=== PATIENT | female | born 1955 | race Caucasian/White ===

== ENCOUNTER → 2017-12-02 | Outpatient (CLI) | payer OTHER ==
[~2017-12-02] MED LIST: ASPI81CH; CELE100; CLARITIN10 MG; CYCL10; METR59TL; Omeprazole20 M1; RALO60; VALSARTAN-HCTZ1 EAC4
== END ==
LOC: LAB SHORT 15:46 → LAB EV 15:46
DX: R30.0 Dysuria (principal)
CPT/HCPCS: 87086

== ENCOUNTER 2019-02-19 11:49 | Day surgery (SDC) | payer OTHER ==
[~2019-02-19] VITALS: Ht 162.6 cm; Wt 139.2 kg
[~2019-02-19 11:49] MED LIST changes: +Aspir 8181 MG PO; +BENADRYL25 MG PO; +CELE100 PO; +Daily Multiple1 EACH PO; +FISH OIL + D31 EACH PO; +FLUT1DIS5 INH; +GLUCOSAMINE MS PO; +LOSARTAN-HCTZ1 EAC2 PO; +Loratadine10 MG PO; +OMEP20ER PO; +RALO60 PO; +VITAMIN D31000 UNIT PO
--- NOTE | 2019-02-19 12:17 | NUR ---
02/19/19 1217 Ilene Mari 1ST ATTEMPT BY RXS IN RIGHT HAND INFILTRATED 2ND ATTEMPT BY KDG IN RIGHT HAND SUCCESSFUL
== END 2019-02-19 13:45 | disposition home or self-care (01) ==
LOC: ORSCSDS 11:49
PROVIDERS: Internal Medicine Gastroenterology
PROC: 0D757ZZ Dilation of Esophagus, Via Natural or Artificial Opening (ICD-10-PCS; principal; 2019-02-19 13:00)
PROC: 0DB58ZX Excision of Esophagus, Via Natural or Artificial Opening Endoscopic, Diagnostic (ICD-10-PCS; principal; 2019-02-19 13:00)
DX: K22.70 Barrett's esophagus without dysplasia (principal); R13.14 Dysphagia, pharyngoesophageal phase; Z86.010 Personal history of colon polyps; K22.2 Esophageal obstruction; I10 Essential (primary) hypertension; Z68.43 Body mass index [BMI] 50.0-59.9, adult; E66.9 Obesity, unspecified; Z79.82 Long term (current) use of aspirin; Z79.899 Other long term (current) drug therapy
CPT/HCPCS: 88305; J7120

== ENCOUNTER 2020-04-21 06:13 | Day surgery (SDC) | payer MEDICARE, BC ==
[~2020-04-21] VITALS: Ht 162.6 cm; Wt 139.6 kg
[~2020-04-21 06:13] MED LIST changes: +AMLO5 PO
[2020-04-21] MEDS ORDERED: BACL10 (06:47)
[2020-04-21] MEDS ORDERED: Norco 5-325 Ta1 EACH (06:47)
--- NOTE | 2020-04-21 07:20 | NUR ---
04/21/20 0720 Lia Azul PT NOTIFIED THAT ANESTHESIOLOGIST IN STILL IN PROCEDURE.
== END 2020-04-21 10:42 | disposition home or self-care (01) ==
LOC: ORSCSDS 06:13
PROVIDERS: Podiatrist Foot & Ankle Surgery
PROC: 0SGJ04Z Fusion of Left Tarsal Joint with Internal Fixation Device, Open Approach (ICD-10-PCS; principal; 2020-04-21 07:30)
DX: M19.072 Primary osteoarthritis, left ankle and foot (principal); M21.41 Flat foot [pes planus] (acquired), right foot; I10 Essential (primary) hypertension; J45.909 Unspecified asthma, uncomplicated; E78.5 Hyperlipidemia, unspecified; E66.01 Morbid (severe) obesity due to excess calories; Z68.43 Body mass index [BMI] 50.0-59.9, adult; Z79.82 Long term (current) use of aspirin; Z79.899 Other long term (current) drug therapy
CPT/HCPCS: A9270; C1713; C1769; J0171; J0690; J1100; J1885; J2250; J2405; J2704; J3010; J7120

== ENCOUNTER 2021-12-28 07:52 | Day surgery (SDC) | payer MEDICARE, BC ==
[~2021-12-28] VITALS: Ht 162.6 cm; Wt 136.3 kg
[~2021-12-28 07:52] MED LIST changes: +ACET500; +ALBU90OI; +AZELASTINE137 MCG/01; +BACL10; +CYCL10 PO; +DILTIAZEM 24HR240 M3 PO; +DOC250; +Norco 5-325 Ta1 EACH; +Toviaz8 MG PO; +ZYRTEC10 M2 PO
== END 2021-12-28 10:13 | disposition home or self-care (01) ==
LOC: ORSCSDS 07:52 → ORSCMMR 09:00 → ORD 09:00 → ORSCSDS 10:13
PROVIDERS: Internal Medicine Gastroenterology
PROC: 0DB78ZX Excision of Stomach, Pylorus, Via Natural or Artificial Opening Endoscopic, Diagnostic (ICD-10-PCS; principal; 2021-12-28 09:00)
PROC: 0DBK8ZX Excision of Ascending Colon, Via Natural or Artificial Opening Endoscopic, Diagnostic (ICD-10-PCS; principal; 2021-12-28 09:00)
PROC: 0DBM8ZX Excision of Descending Colon, Via Natural or Artificial Opening Endoscopic, Diagnostic (ICD-10-PCS; principal; 2021-12-28 09:00)
PROC: 0D757ZZ Dilation of Esophagus, Via Natural or Artificial Opening (ICD-10-PCS; principal; 2021-12-28 09:00)
PROC: 0DBN8ZX Excision of Sigmoid Colon, Via Natural or Artificial Opening Endoscopic, Diagnostic (ICD-10-PCS; principal; 2021-12-28 09:00)
PROC: 0DB58ZX Excision of Esophagus, Via Natural or Artificial Opening Endoscopic, Diagnostic (ICD-10-PCS; principal; 2021-12-28 09:00)
DX: R13.14 Dysphagia, pharyngoesophageal phase (principal); K22.2 Esophageal obstruction; K22.70 Barrett's esophagus without dysplasia; K63.89 Other specified diseases of intestine; Z12.11 Encounter for screening for malignant neoplasm of colon; Z86.010 Personal history of colon polyps; D12.2 Benign neoplasm of ascending colon; D12.4 Benign neoplasm of descending colon; D12.5 Benign neoplasm of sigmoid colon; K31.7 Polyp of stomach and duodenum; K57.30 Diverticulosis of large intestine without perforation or abscess without bleeding; E66.01 Morbid (severe) obesity due to excess calories; Z68.43 Body mass index [BMI] 50.0-59.9, adult; I10 Essential (primary) hypertension; J45.909 Unspecified asthma, uncomplicated; K21.9 Gastro-esophageal reflux disease without esophagitis; Z85.3 Personal history of malignant neoplasm of breast; Z79.899 Other long term (current) drug therapy
CPT/HCPCS: 88305; J2250; J2704; J7120

== ENCOUNTER 2022-03-18 11:05 | Day surgery (SDC) | payer MEDICARE, BC ==
[~2022-03-18] VITALS: Ht 165.1 cm; Wt 135.1 kg
== END 2022-03-18 13:10 | disposition home or self-care (01) ==
LOC: ORSCSDS 11:05
PROVIDERS: Student in an Organized Health Care Education/Training Program
PROC: 0DB48ZX Excision of Esophagogastric Junction, Via Natural or Artificial Opening Endoscopic, Diagnostic (ICD-10-PCS; principal; 2022-03-18 12:15)
PROC: 0D758ZZ Dilation of Esophagus, Via Natural or Artificial Opening Endoscopic (ICD-10-PCS; principal; 2022-03-18 12:15)
DX: K21.9 Gastro-esophageal reflux disease without esophagitis (principal); R13.10 Dysphagia, unspecified; K22.2 Esophageal obstruction; K44.9 Diaphragmatic hernia without obstruction or gangrene; K31.7 Polyp of stomach and duodenum; I10 Essential (primary) hypertension; Z79.899 Other long term (current) drug therapy; E66.01 Morbid (severe) obesity due to excess calories; Z68.42 Body mass index [BMI] 45.0-49.9, adult
CPT/HCPCS: 88305; C1726; J2704; J7120

== ENCOUNTER 2022-06-07 06:16 | Day surgery (SDC) | payer MEDICARE, BC ==
[~2022-06-07] VITALS: Ht 165.1 cm; Wt 133.3 kg
[2022-06-07] MEDS ORDERED: CELE100 (07:23)
--- NOTE | 2022-06-07 08:10 | NUR ---
06/07/22 0810 Nel Saha POPITEAL BLOCK TO RIGHT SIDE. SITE CHECK COMPLETE. VSS. PT TOLERATED WELL.
--- NOTE | 2022-06-07 10:46 | NUR ---
06/07/22 1046 EM JONES PT DRESSING IS ON RIGHT LOWER LEG: SPINT/ GUIDO WRAP IT IS CLEAN AND INTACT
== END 2022-06-07 11:10 | disposition home or self-care (01) ==
LOC: ORSCSDS 06:16
PROVIDERS: Podiatrist Foot & Ankle Surgery
PROC: 0SGH04Z Fusion of Right Tarsal Joint with Internal Fixation Device, Open Approach (ICD-10-PCS; principal; 2022-06-07 07:30)
PROC: 0LSN0ZZ Reposition Right Lower Leg Tendon, Open Approach (ICD-10-PCS; principal; 2022-06-07 07:30)
DX: M21.41 Flat foot [pes planus] (acquired), right foot (principal); M19.071 Primary osteoarthritis, right ankle and foot; R60.0 Localized edema; M79.671 Pain in right foot; I10 Essential (primary) hypertension; E78.5 Hyperlipidemia, unspecified; J45.909 Unspecified asthma, uncomplicated; E66.01 Morbid (severe) obesity due to excess calories; Z68.43 Body mass index [BMI] 50.0-59.9, adult; Z79.51 Long term (current) use of inhaled steroids; Z79.899 Other long term (current) drug therapy
CPT/HCPCS: A9270; C1713; C1734; C1769; J0171; J0690; J1100; J2250; J2370; J2405; J2704; J2795; J3010; J7120

== ENCOUNTER → 2022-09-20 | Outpatient (CLI) | payer MEDICARE, BC ==
[2022-09-20 13:15] LABS: BASOPHILS ABSOLUTE AUTO 0.05 K/mm3 (0.00-0.23); BASOPHILS PERCENT AUTO 1 % (0-2); EOSINOPHILS ABSOLUTE AUTO 0.25 K/mm3 (0.00-0.68); EOSINOPHILS PERCENT AUTO 4 % (0-6); Hematocrit 39.6 % (33.0-51.0); Hemoglobin 12.8 g/dL (11.5-16.0); IMMATURE GRAN ABSOLUTE AUTO 0.01 K/mm3 (0.00-0.10); IMMATURE GRAN PERCENT AUTO 0 % (0-1); LYMPHOCYTES ABSOLUTE AUTO 1.65 K/mm3 (0.84-5.20); LYMPHOCYTES PERCENT AUTO 27 % (21-46); MONOCYTES ABSOLUTE AUTO 0.53 K/mm3 (0.16-1.47); MONOCYTES PERCENT AUTO 9 % (4-13); Mean Corpuscular HGB 26.6 pg (26.0-34.0); Mean Corpuscular HGB Conc 32.3 g/dL (31.5-36.5); Mean Corpuscular Volume 82 fL (80-100); Mean Platelet Volume 9.2 fL (9.1-12.4); NEUTROPHILS ABSOLUTE AUTO 3.61 K/mm3 (1.96-9.15); NEUTROPHILS PERCENT AUTO 59 % (41-73); Platelet Count 403 K/mm3 (150-400); RDW Coefficient Variation 14.2 % (11.7-14.2); RDW Standard Deviation 42.5 fL (35.1-46.3); Red Blood Cell Count 4.81 M/mm3 (3.80-5.20)
[2022-09-20 14:06] LABS: Alanine Aminotransfer (ALT/SGP 26 U/L (12-78); Albumin, Blood 3.6 g/dL (3.4-5.0); Albumin/Globulin Ratio 1.1 (0.8-1.8); Alk Phos 122 U/L (50-136); Anion Gap 6 mmol/L (6-16); Aspartate Aminotrans (AST/SGOT 18 U/L (12-37); Bilirubin, Total 0.5 mg/dL (0.1-1.0); Blood Urea Nitrogen 15 mg/dL (8-24); Bun/Creatinine Ratio 29.1 (12.0-20.0); CHOL/HDL RATIO 3.2; CO2, Blood 27 mmol/L (21-32); Calcium, Blood 8.8 mg/dL (8.5-10.1); Chloride, Blood 106 mmol/L (98-108); Cholesterol 187 mg/dL (50-200); Creatinine, Blood 0.52 mg/dL (0.40-1.00); Globulin, Blood 3.4 g/dL (2.2-4.0); Glomerular Filtration Rate 101 (60-); Glucose, Blood 97 mg/dL (70-99); HDL Cholesterol 58 mg/dL (>39); LDL/HDL RATIO 1.8; Low Density Lipoprotein Chol 105 mg/dL (0-110); Potassium, Blood 3.6 mmol/L (3.5-5.5); Sodium, Blood 139 mmol/L (136-145); Triglycerides 118 mg/dL (30-160); Very Low Density Lipoprot Chol 23 mg/dL (6-32)
== END | disposition home or self-care (01) ==
LOC: LAB SHORT 11:52 → LAB 11:52
PROVIDERS: Family Medicine
DX: E78.49 Other hyperlipidemia (principal); I10 Essential (primary) hypertension
CPT/HCPCS: 80053; 80061; 85025

== ENCOUNTER 2024-06-03 19:43 | Inpatient (IN) | payer MEDICARE, BC ==
[~2024-06-03] VITALS: Ht 162.6 cm; Wt 140.7 kg
[~2024-06-03 19:43] MED LIST changes: -AMOCLA875 PO; -AZELASTINE137 MCG/06; -BREO ELLIPTA 11 EAC1 INH; -FLUT.05NI; -FURO40 PO; -IPRAT-ALBUT 0.5-3 ML INH; -LACT PO; -LOSARTAN POTAS100 M1 PO; -LOSARTAN-HCTZ1 EAC5 PO; -NEOPOLDEXS BOTHEYES; -OSEL75CA PO; -POTA10T PO; -PRED20 PO; -ROBITUSSIN DM PO; -SODCHL1 PO; -SPIRIVA RESPIMAT4 G3 INH
[2024-06-03] MEDS ORDERED: NS 1,000 ML IV SCH (22:10)
[2024-06-03] MEDS ORDERED: Albuterol 2.5 MG/3 ML VIAL INH SCH (22:15)
[2024-06-03 22:26] LABS: BASOPHILS ABSOLUTE AUTO 0.02 K/mm3 (0.00-0.23); BASOPHILS PERCENT AUTO 0 % (0-2); EOSINOPHILS ABSOLUTE AUTO 0.01 K/mm3 (0.00-0.68); EOSINOPHILS PERCENT AUTO 0 % (0-6); Hematocrit 39.9 % (33.0-51.0); Hemoglobin 13.9 g/dL (11.5-16.0); IMMATURE GRAN ABSOLUTE AUTO 0.08 K/mm3 (0.00-0.10); IMMATURE GRAN PERCENT AUTO 1 % (0-1); LYMPHOCYTES ABSOLUTE AUTO 1.05 K/mm3 (0.84-5.20); LYMPHOCYTES PERCENT AUTO 12 % (21-46); MONOCYTES PERCENT AUTO 6 % (4-13); Mean Corpuscular HGB 27.1 pg (26.0-34.0); Mean Corpuscular HGB Conc 34.8 g/dL (31.5-36.5); Mean Corpuscular Volume 78 fL (80-100); Mean Platelet Volume 8.4 fL (9.1-12.4); NEUTROPHILS ABSOLUTE AUTO 7.43 K/mm3 (1.96-9.15); NEUTROPHILS PERCENT AUTO 82 % (41-73); Platelet Count 392 K/mm3 (150-400); RDW Coefficient Variation 12.9 % (11.7-14.2); RDW Standard Deviation 36.7 fL (35.1-46.3); Red Blood Cell Count 5.12 M/mm3 (3.80-5.20); White Blood Cell Count 9.09 K/mm3 (4.00-11.30)
[2024-06-03] MEDS ORDERED: NS 1,000 ML IV ONE (22:45)
[2024-06-03] MEDS ORDERED: FLU VACC TS2024-25(6MOS UP)/PF 45 MCG/0.5 ML SYRINGE IM ONE (22:45)
[2024-06-03] MEDS ORDERED: Ondansetron HCl 2 MG / ML 2ML Vial IV PRN (22:45)
[2024-06-03] MEDS ORDERED: Potassium Chloride 40 MEQ in NS 250 ML IV ONE (22:50)
[2024-06-03] MEDS ORDERED: Enoxaparin 40 MG/0.4 ML SYR SC SCH (23:00)
[2024-06-03 23:09] LABS: Albumin/Globulin Ratio 0.9 (0.8-1.8); Bilirubin, Total 0.4 mg/dL (0.1-1.0); Bun/Creatinine Ratio 34.5 (12.0-20.0); Calcium, Blood 8.4 mg/dL (8.5-10.1); Creatinine, Blood 0.38 mg/dL (0.40-1.00); Globulin, Blood 3.5 g/dL (2.2-4.0); Potassium, Blood 3.1 mmol/L (3.5-5.5); Total Protein, Blood 6.5 g/dL (6.4-8.2)
[2024-06-03] MEDS ORDERED: FLUT.05NI (23:10)
[2024-06-03] MEDS ORDERED: AZELASTINE137 MCG/06 (23:11)
[2024-06-03] MEDS ORDERED: CYCL10 PO (23:12)
[2024-06-03] MEDS ORDERED: LOSARTAN-HCTZ1 EAC5 PO (23:15)
[2024-06-03] MEDS ORDERED: NEOPOLDEXS BOTHEYES (23:15)
[2024-06-03] MEDS ORDERED: BREO ELLIPTA 11 EAC1 INH (23:16)
[2024-06-03] MEDS ORDERED: SPIRIVA RESPIMAT4 G3 INH (23:17)
[2024-06-03] MEDS ORDERED: PRED20 PO (23:18)
[2024-06-03] MEDS ORDERED: IPRAT-ALBUT 0.5-3 ML INH (23:18)
[2024-06-03 23:43] LABS: Influenza B, PCR NEGATIVE (NEGATIVE); Resp Syncytial Virus, PCR NEGATIVE (NEGATIVE); SARS-Cov-2 (COVID-19) PCR, MMC NEGATIVE (NEGATIVE)
[2024-06-03 23:47] LABS: Influenza A, PCR POSITIVE (NEGATIVE)
[2024-06-04] MEDS ORDERED: Ipratropium/Albuterol SulF 2.5-0.5MG/3 ML Amp INH PRN (00:05)
[2024-06-04] MEDS ORDERED: Guaifenesin/Dextromethorphan Syrup 5 ML UDC PO PRN (00:05)
[2024-06-04 00:28] VITALS: BP 193/114
[2024-06-04] MEDS ORDERED: Oseltamivir Phosphate 75 MG Cap PO SCH (01:00)
[2024-06-04] MEDS ORDERED: MethylPREDNISolone Sod Succ 125 MG Vial IV SCH ×2 (01:00→08:00)
[2024-06-04] MEDS ORDERED: HydrALAZINE HCl 20 MG / ML 1ML Vial IV PRN (01:50)
[2024-06-04] MEDS ORDERED: Azithromycin 500 MG in NS 250 ML IV SCH (04:48)
[2024-06-04] MEDS ORDERED: CefTRIAXone Sodium 1,000 MG in NS 100 ML IV SCH (05:00)
[2024-06-04 05:56] LABS: BASOPHILS ABSOLUTE AUTO 0.01 K/mm3 (0.00-0.23); BASOPHILS PERCENT AUTO 0 % (0-2); EOSINOPHILS PERCENT AUTO 0 % (0-6); Hemoglobin 13.7 g/dL (11.5-16.0); IMMATURE GRAN ABSOLUTE AUTO 0.07 K/mm3 (0.00-0.10); IMMATURE GRAN PERCENT AUTO 1 % (0-1); LYMPHOCYTES ABSOLUTE AUTO 0.74 K/mm3 (0.84-5.20); LYMPHOCYTES PERCENT AUTO 8 % (21-46); MONOCYTES ABSOLUTE AUTO 0.18 K/mm3 (0.16-1.47); MONOCYTES PERCENT AUTO 2 % (4-13); Mean Corpuscular HGB 26.9 pg (26.0-34.0); Mean Corpuscular HGB Conc 34.3 g/dL (31.5-36.5); Mean Corpuscular Volume 79 fL (80-100); Mean Platelet Volume 9.1 fL (9.1-12.4); NEUTROPHILS ABSOLUTE AUTO 8.23 K/mm3 (1.96-9.15); NEUTROPHILS PERCENT AUTO 89 % (41-73); Platelet Count 388 K/mm3 (150-400); RDW Coefficient Variation 13.1 % (11.7-14.2); RDW Standard Deviation 37.3 fL (35.1-46.3); Red Blood Cell Count 5.09 M/mm3 (3.80-5.20); White Blood Cell Count 9.23 K/mm3 (4.00-11.30)
[2024-06-04] MEDS ORDERED: Cyclobenzaprine HCl 10 MG Tab PO PRN (06:20)
[2024-06-04] MEDS ORDERED: Tiotropium Bromide 2.5 MCG/ACT MIST INHAL (10 ACT/4 GM) INH SCH (06:25)
[2024-06-04] MEDS ORDERED: Acetaminophen 325 MG TABLET PO PRN (06:25)
[2024-06-04 06:48] LABS: Albumin, Blood 2.9 g/dL (3.4-5.0); Albumin/Globulin Ratio 0.9 (0.8-1.8); Bilirubin, Total 0.4 mg/dL (0.1-1.0); Bun/Creatinine Ratio 24.9 (12.0-20.0); Calcium, Blood 8.2 mg/dL (8.5-10.1); Creatinine, Blood 0.44 mg/dL (0.40-1.00); Globulin, Blood 3.4 g/dL (2.2-4.0); Potassium, Blood 3.8 mmol/L (3.5-5.5); Total Protein, Blood 6.3 g/dL (6.4-8.2)
[2024-06-04] MEDS ORDERED: Trospium Chloride 20 MG Tab PO SCH (07:30)
[2024-06-04] MEDS ORDERED: Omeprazole 20 MG CapCR PO SCH (07:30)
[2024-06-04 08:02] VITALS: BP 154/84
[2024-06-04] MEDS ORDERED: Docusate Sodium 250 MG Cap PO SCH (09:00)
[2024-06-04] MEDS ORDERED: Losartan Potassium 50 MG Tab PO SCH (09:00)
[2024-06-04] MEDS ORDERED: Aspirin 81 MG TabEC PO SCH (09:00)
[2024-06-04] MEDS ORDERED: Azelastine 0.1% Nasal Spray SCH (09:00)
[2024-06-04] MEDS ORDERED: HydroCHLOROthiazide 25 mg Tab PO SCH (09:00)
[2024-06-04] MEDS ORDERED: Diltiazem HCl 180 MG Cap.CD PO SCH (09:00)
[2024-06-04] MEDS ORDERED: Fluticasone 0.05% Nasal Spray SCH (09:00)
[2024-06-04 09:51] LABS: Osmolality, Serum 244 mos/KG (275-300)
[2024-06-04 10:06] LABS: Uric Acid, Blood 1.6 mg/dL (2.6-6.0)
[2024-06-04 10:08] LABS: Thyroid Stimulating Hormone 0.585 uIU/mL (0.360-4.800)
[2024-06-04 10:13] LABS: Albumin, Blood 2.9 g/dL (3.4-5.0); Anion Gap 17 mmol/L (3-11); Blood Urea Nitrogen 12 mg/dL (8-24); Bun/Creatinine Ratio 35.6 (12.0-20.0); CO2, Blood 22 mmol/L (21-32); Chloride, Blood 83 mmol/L (98-108); Creatinine, Blood 0.34 mg/dL (0.40-1.00); Glomerular Filtration Rate 111 (60-); Glucose, Blood 116 mg/dL (70-99); HDL Cholesterol 109 mg/dL (>39); Phosphorus, Blood 2.9 mg/dL (2.5-4.9); Potassium, Blood 4.6 mmol/L (3.5-5.5); Sodium, Blood 117 mmol/L (136-145)
[2024-06-04] MEDS ORDERED: Bumetanide 0.25 MG/ML 10ML Vial IV ONE (11:05)
[2024-06-04 15:23] LABS: Bun/Creatinine Ratio 26.5 (12.0-20.0); Calcium, Blood 8.1 mg/dL (8.5-10.1); Creatinine, Blood 0.45 mg/dL (0.40-1.00); Potassium, Blood 3.1 mmol/L (3.5-5.5)
[2024-06-04] MEDS ORDERED: Potassium Chloride 10 Meq Tablet SA PO ONE ×2 (15:45→18:35)
[2024-06-04 15:52] VITALS: BP 177/93
[2024-06-04 16:30] VITALS: BP 162/80
[2024-06-04 17:51] VITALS: BP 165/76
--- NOTE | 2024-06-04 18:11 | NUR ---
SHIFT SUMMARY PT A&Ox4, CALLS AND COMMUNICATES NEEDS APPROPRIATELY. MONITORING FOR NEUROLOGIAL S/S OF HYPONATREMIA. BP ELEVATED - C/O MILD HEADACHE, MANAGING PER EMAR, SINUS 80's w/ PVCs, DENIES CP/PRESSURE. SpO2> 92% RA, REPORTS MILD SOB AND C/O OF WHEEZING, RT NOTIFIED. PT IND IN ROOM, CONTINENT OF URINE, STRICT I&Os. NO OTHER EVENTS, WILL REPORT TO ONCOMING RN.
[2024-06-04 18:22] LABS: Potassium, Blood 3.3 mmol/L (3.5-5.5)
[2024-06-04] MEDS ORDERED: Furosemide 10 MG/ML 4ML Vial IV ONE ×2 (18:35→21:50)
[2024-06-04] MEDS ORDERED: Sodium Chloride 1 GM TAB PO ONE ×3 (18:35→21:55)
[2024-06-04 20:24] VITALS: BP 149/77
[2024-06-04] MEDS ORDERED: Lactobacil 2-S.Thermo-Bifido 1 1 Cap PO SCH (21:00)
[2024-06-04 21:36] LABS: Bun/Creatinine Ratio 24.1 (12.0-20.0); Calcium, Blood 8.2 mg/dL (8.5-10.1); Creatinine, Blood 0.5 mg/dL (0.40-1.00); Potassium, Blood 3.1 mmol/L (3.5-5.5)
[2024-06-04] MEDS ORDERED: Potassium Chloride 20 MEQ TabCR PO ONE (21:50)
--- NOTE | 2024-06-04 21:54 | NUR ---
SPOKE WITH DR. GANT ABOUT SODIUM OF 118 ( CIRITICAL VALUE). HE GAVE ORDER FOR 40MEQ K+ PO, 40MG LASIX IV AND 2G SALT TAB NOW. MORNING CBC AND CMP CHANGED TO STAT.
[2024-06-05 05:28] LABS: BASOPHILS ABSOLUTE AUTO 0.01 K/mm3 (0.00-0.23); BASOPHILS PERCENT AUTO 0 % (0-2); EOSINOPHILS ABSOLUTE AUTO 0.01 K/mm3 (0.00-0.68); EOSINOPHILS PERCENT AUTO 0 % (0-6); Hematocrit 42.5 % (33.0-51.0); Hemoglobin 14.4 g/dL (11.5-16.0); IMMATURE GRAN ABSOLUTE AUTO 0.09 K/mm3 (0.00-0.10); IMMATURE GRAN PERCENT AUTO 1 % (0-1); LYMPHOCYTES PERCENT AUTO 8 % (21-46); MONOCYTES ABSOLUTE AUTO 0.41 K/mm3 (0.16-1.47); MONOCYTES PERCENT AUTO 5 % (4-13); Mean Corpuscular HGB 26.9 pg (26.0-34.0); Mean Corpuscular HGB Conc 33.9 g/dL (31.5-36.5); Mean Corpuscular Volume 79 fL (80-100); Mean Platelet Volume 8.7 fL (9.1-12.4); NEUTROPHILS ABSOLUTE AUTO 7.71 K/mm3 (1.96-9.15); NEUTROPHILS PERCENT AUTO 86 % (41-73); Platelet Count 443 K/mm3 (150-400); RDW Coefficient Variation 13.3 % (11.7-14.2); RDW Standard Deviation 37.7 fL (35.1-46.3); Red Blood Cell Count 5.36 M/mm3 (3.80-5.20); White Blood Cell Count 8.93 K/mm3 (4.00-11.30)
[2024-06-05 05:48] VITALS: BP 166/71
[2024-06-05 05:56] LABS: Albumin, Blood 3.1 g/dL (3.4-5.0); Anion Gap 12 mmol/L (3-11); Blood Urea Nitrogen 12 mg/dL (8-24); Bun/Creatinine Ratio 24.2 (12.0-20.0); CO2, Blood 30 mmol/L (21-32); Calcium, Blood 8.3 mg/dL (8.5-10.1); Chloride, Blood 84 mmol/L (98-108); Glomerular Filtration Rate 101 (60-); Glucose, Blood 138 mg/dL (70-99); Magnesium, Blood 2.2 mg/dL (1.6-2.4); Phosphorus, Blood 2.7 mg/dL (2.5-4.9); Potassium, Blood 3.7 mmol/L (3.5-5.5); Sodium, Blood 122 mmol/L (136-145)
[2024-06-05 07:06] VITALS: BP 156/74
[2024-06-05] MEDS ORDERED: Potassium Chloride 10 Meq Tablet SA PO SCH (08:00)
[2024-06-05] MEDS ORDERED: Sodium Chloride 1 GM TAB PO SCH (09:00)
[2024-06-05] MEDS ORDERED: Furosemide 10 MG/ML 4ML Vial IV SCH (09:00)
[2024-06-05 12:49] LABS: Albumin/Globulin Ratio 0.9 (0.8-1.8); Bilirubin, Total 0.2 mg/dL (0.1-1.0); Bun/Creatinine Ratio 33.8 (12.0-20.0); Creatinine, Blood 0.47 mg/dL (0.40-1.00); Globulin, Blood 3.5 g/dL (2.2-4.0); Potassium, Blood 3.5 mmol/L (3.5-5.5); Total Protein, Blood 6.5 g/dL (6.4-8.2)
[2024-06-05] MEDS ORDERED: Potassium Chloride 10 Meq Tablet SA PO ONE ×3 (13:05→22:25)
[2024-06-05 15:16] VITALS: BP 123/64
[2024-06-05 16:37] LABS: Potassium, Blood 3.4 mmol/L (3.5-5.5)
[2024-06-05] MEDS ORDERED: Sodium Chloride 1 GM TAB PO ONE (17:10)
[2024-06-05] MEDS ORDERED: Albuterol 2.5 MG/3 ML VIAL INH SCH ×2 (19:15→19:17)
[2024-06-05 19:48] VITALS: BP 146/72
[2024-06-05] MEDS ORDERED: MethylPREDNISolone Sod Succ 125 MG Vial IV SCH (21:00)
[2024-06-05 22:21] LABS: Potassium, Blood 3.6 mmol/L (3.5-5.5)
[2024-06-05] MEDS ORDERED: TraMADol HCl 50 MG Tab PO ONE (22:25)
[2024-06-06 05:02] LABS: BASOPHILS ABSOLUTE AUTO 0.02 K/mm3 (0.00-0.23); BASOPHILS PERCENT AUTO 0 % (0-2); EOSINOPHILS PERCENT AUTO 0 % (0-6); IMMATURE GRAN PERCENT AUTO 1 % (0-1); LYMPHOCYTES ABSOLUTE AUTO 0.45 K/mm3 (0.84-5.20); LYMPHOCYTES PERCENT AUTO 3 % (21-46); MONOCYTES ABSOLUTE AUTO 0.63 K/mm3 (0.16-1.47); MONOCYTES PERCENT AUTO 5 % (4-13); Mean Corpuscular HGB 27.2 pg (26.0-34.0); Mean Corpuscular HGB Conc 33.3 g/dL (31.5-36.5); Mean Corpuscular Volume 82 fL (80-100); Mean Platelet Volume 8.7 fL (9.1-12.4); NEUTROPHILS PERCENT AUTO 91 % (41-73); Platelet Count 443 K/mm3 (150-400); RDW Coefficient Variation 13.6 % (11.7-14.2); RDW Standard Deviation 40.6 fL (35.1-46.3); Red Blood Cell Count 5.15 M/mm3 (3.80-5.20)
[2024-06-06 05:17] LABS: Albumin, Blood 2.9 g/dL (3.4-5.0); Anion Gap 9 mmol/L (3-11); Blood Urea Nitrogen 20 mg/dL (8-24); Bun/Creatinine Ratio 32.8 (12.0-20.0); CO2, Blood 32 mmol/L (21-32); Chloride, Blood 94 mmol/L (98-108); Creatinine, Blood 0.61 mg/dL (0.40-1.00); Glomerular Filtration Rate 96 (60-); Glucose, Blood 144 mg/dL (70-99); Magnesium, Blood 2.4 mg/dL (1.6-2.4); Phosphorus, Blood 2.2 mg/dL (2.5-4.9); Potassium, Blood 3.9 mmol/L (3.5-5.5); Sodium, Blood 131 mmol/L (136-145)
[2024-06-06 05:19] VITALS: BP 158/78
--- NOTE | 2024-06-06 06:02 | NUR ---
SHIFT SUMMARY: Pt is admitted for hyponatremia and is a full code. Is alert and able to make needs known. ADLs have been SBA. spoke with md and was able to get a one time order for tramadol 50mg for a headache that APAP was not helping very well. She stated she shannan from a 5-6/10 down to a 2/10. Telly reports sinus in the high 90s with bundle branch, pvcs and pacs.
[2024-06-06] MEDS ORDERED: Sodium Phosphate 10 MM in NS 250 ML IV ONE (06:30)
[2024-06-06 07:35] VITALS: BP 175/77
[2024-06-06] MEDS ORDERED: Potassium Chloride 10 Meq Tablet SA PO SCH (09:00)
[2024-06-06] MEDS ORDERED: Furosemide 40 MG Tab PO SCH (09:00)
[2024-06-06] MEDS ORDERED: Furosemide 10 MG/ML 4ML Vial IV ONE (12:00)
[2024-06-06 12:51] LABS: Potassium, Blood 3.2 mmol/L (3.5-5.5)
[2024-06-06] MEDS ORDERED: Potassium Chloride 10 Meq Tablet SA PO ONE (13:25)
[2024-06-06 16:06] VITALS: BP 161/75
--- NOTE | 2024-06-06 19:19 | NUR ---
SHIFT SUMMARY PATIENT ABLE TO SHOWER THIS AM. SKIN IN GOOD CONDITION. POWERGLIDE TO LEFT ARM PATENT WITH RED BLOOD RETURN, CAPS CHANGED. ADDITIONAL ELECTROLYTE REPLACEMENT GIVEN PER MAR, TELEPHONE ORDER FROM DR GANT. A/O X4. NO C/O HEADACHE THIS SHIFT. CALL LIGHT IN REACH, CARES ONGOING
[2024-06-06 20:13] VITALS: BP 149/89
[2024-06-06] MEDS ORDERED: Oseltamivir Phosphate 6 MG/ML 1ML DOSE PO SCH (21:00)
[2024-06-07 05:05] LABS: Hematocrit 42.4 % (33.0-51.0); Hemoglobin 13.9 g/dL (11.5-16.0)
[2024-06-07 05:26] LABS: Albumin, Blood 2.9 g/dL (3.4-5.0); Anion Gap 10 mmol/L (3-11); Blood Urea Nitrogen 21 mg/dL (8-24); Bun/Creatinine Ratio 46.7 (12.0-20.0); CO2, Blood 31 mmol/L (21-32); Calcium, Blood 7.9 mg/dL (8.5-10.1); Chloride, Blood 100 mmol/L (98-108); Creatinine, Blood 0.45 mg/dL (0.40-1.00); Glomerular Filtration Rate 103 (60-); Glucose, Blood 146 mg/dL (70-99); Magnesium, Blood 2.6 mg/dL (1.6-2.4); Phosphorus, Blood 2.1 mg/dL (2.5-4.9); Potassium, Blood 3.6 mmol/L (3.5-5.5); Sodium, Blood 137 mmol/L (136-145)
[2024-06-07 05:49] VITALS: BP 170/86
[2024-06-07] MEDS ORDERED: SODIUM PHOSPHATE IV SCH (06:20)
[2024-06-07] MEDS ORDERED: Sodium Phosphate 10 MM in NS 250 ML IV STA (06:35)
[2024-06-07 07:44] VITALS: BP 180/93
[2024-06-07] MEDS ORDERED: Sodium Chloride 1 GM TAB PO SCH (09:00)
[2024-06-07] MEDS ORDERED: Oseltamivir Phosphate 75 MG Cap PO ONE (10:40)
[2024-06-07 11:03] VITALS: BP 170/74
[2024-06-07] MEDS ORDERED: FURO40 PO (13:55)
[2024-06-07] MEDS ORDERED: LOSARTAN POTAS100 M1 PO (13:55)
[2024-06-07] MEDS ORDERED: ROBITUSSIN DM PO (13:55)
[2024-06-07] MEDS ORDERED: POTA10T PO (13:56)
[2024-06-07] MEDS ORDERED: OSEL75CA PO (13:56)
[2024-06-07] MEDS ORDERED: LACT PO (13:57)
[2024-06-07] MEDS ORDERED: SODCHL1 PO (13:57)
[2024-06-07] MEDS ORDERED: AMOCLA875 PO (13:57)
--- NOTE | 2024-06-07 16:39 | NUR ---
DISCHARGE SUMMARY: PT DISCHARGED HOME. HERE TO PICK HER UP. PT EDUCATED ON DISCHARGE PLAN AND MEDICATIONS. PT AWARE SHE HAS APPOINTMENT WITH DR. GANT ON FRIDAY. PT ADVISED TO CALL DR. GANT OFFICE IF SYMPTOMS WORSEN OR COME BACK TO THE ER. PT V/U. PT ESCORTED TO POV VIA WHEELCHAIR. SPOUSE TOOK BELONGINGS.
[2024-06-07] MEDS ORDERED: Oseltamivir Phosphate 75 MG Cap PO SCH (21:00)
[2024-06-10 05:54] LABS: CORTISOL, FREE BY ED/LC-MS/MS 0.19 ug/dL
== END 2024-06-07 15:13 | disposition home or self-care (01) | DRG 193 ==
LOC: ER 19:43 → MEDS 22:15 → ERHOLD 22:15 → MEDS 23:59
PROVIDERS: Emergency Medicine; Family Medicine; Internal Medicine Nephrology; Student in an Organized Health Care Education/Training Program; ADMIT Internal Medicine
DX: J10.1 Influenza due to other identified influenza virus with other respiratory manifestations (principal); J96.01 Acute respiratory failure with hypoxia; E87.1 Hypo-osmolality and hyponatremia; Z68.43 Body mass index [BMI] 50.0-59.9, adult; K21.9 Gastro-esophageal reflux disease without esophagitis; I10 Essential (primary) hypertension; J45.909 Unspecified asthma, uncomplicated; D64.9 Anemia, unspecified; E87.6 Hypokalemia; E66.9 Obesity, unspecified; G56.03 Carpal tunnel syndrome, bilateral upper limbs; E83.39 Other disorders of phosphorus metabolism; R07.9 Chest pain, unspecified; E88.09 Other disorders of plasma-protein metabolism, not elsewhere classified; N28.9 Disorder of kidney and ureter, unspecified; Z79.899 Other long term (current) drug therapy; Z79.891 Long term (current) use of opiate analgesic; Z79.51 Long term (current) use of inhaled steroids; Z79.82 Long term (current) use of aspirin; Z79.52 Long term (current) use of systemic steroids; Z79.1 Long term (current) use of non-steroidal anti-inflammatories (NSAID); Z91.048 Other nonmedicinal substance allergy status; Z90.710 Acquired absence of both cervix and uterus; Z90.89 Acquired absence of other organs; Z98.890 Other specified postprocedural states; Z28.89 Immunization not carried out for other reason; Z90.13 Acquired absence of bilateral breasts and nipples
CPT/HCPCS: 0241U; 36415; 71046; 80048; 80053; 80069; 82530; 83718; 83735; 83880; 83930; 84132; 84295; 84443; 84484; 84550; 85014; 85018; 85025; 85379; 87070; 87205; 93005; 93010; 94640; 94664; 94760; 99284-25; A9270; J0360; J0456; J0696; J1650; J1940; J2405; J2919; J3480; J7030; J7050

== ENCOUNTER → 2024-06-03 | Outpatient (CLI) | payer MEDICARE, BC ==
[~2024-06-03] MED LIST changes: -ACET500; +ACET500 PO; +AMOCLA875 PO; +AZELASTINE137 MCG/06; +BREO ELLIPTA 11 EAC1 INH; -CELE100 PO; +CELE200 PO; -DILTIAZEM 24HR240 M3 PO; +DILTIAZEM 24HR360 MG PO; -DOC250; +DOC250 PO; -FISH OIL + D31 EACH PO; +FLUT.05NI; +FURO40 PO; -GLUCOSAMINE MS PO; +GLUCOSAMINE-CH1 EA50 PO; +IPRAT-ALBUT 0.5-3 ML INH; +LACT PO; +LOSARTAN POTAS100 M1 PO; +LOSARTAN-HCTZ1 EAC5 PO; +NEOPOLDEXS BOTHEYES; +OMEGA-3 1,0501 EACH PO; +OSEL75CA PO; +POTA10T PO; +PRED20 PO; +ROBITUSSIN DM PO; +SODCHL1 PO; +SPIRIVA RESPIMAT4 G3 INH
[2024-06-03 18:54] LABS: BASOPHILS ABSOLUTE AUTO 0.01 K/mm3 (0.00-0.23); BASOPHILS PERCENT AUTO 0 % (0-2); EOSINOPHILS PERCENT AUTO 0 % (0-6); Hematocrit 39.6 % (33.0-51.0); Hemoglobin 13.6 g/dL (11.5-16.0); IMMATURE GRAN ABSOLUTE AUTO 0.05 K/mm3 (0.00-0.10); IMMATURE GRAN PERCENT AUTO 1 % (0-1); LYMPHOCYTES ABSOLUTE AUTO 0.79 K/mm3 (0.84-5.20); LYMPHOCYTES PERCENT AUTO 9 % (21-46); MONOCYTES ABSOLUTE AUTO 0.35 K/mm3 (0.16-1.47); MONOCYTES PERCENT AUTO 4 % (4-13); Mean Corpuscular HGB 27.3 pg (26.0-34.0); Mean Corpuscular HGB Conc 34.3 g/dL (31.5-36.5); Mean Corpuscular Volume 80 fL (80-100); Mean Platelet Volume 8.7 fL (9.1-12.4); NEUTROPHILS PERCENT AUTO 86 % (41-73); Platelet Count 405 K/mm3 (150-400); RDW Coefficient Variation 13.1 % (11.7-14.2); RDW Standard Deviation 37.3 fL (35.1-46.3); Red Blood Cell Count 4.98 M/mm3 (3.80-5.20)
[2024-06-03 19:06] LABS: Albumin, Blood 3.1 g/dL (3.4-5.0); Albumin/Globulin Ratio 0.9 (0.8-1.8); Bilirubin, Total 0.4 mg/dL (0.1-1.0); Calcium, Blood 8.1 mg/dL (8.5-10.1); Creatinine, Blood 0.61 mg/dL (0.40-1.00); Globulin, Blood 3.4 g/dL (2.2-4.0); Potassium, Blood 3.4 mmol/L (3.5-5.5); Total Protein, Blood 6.5 g/dL (6.4-8.2)
== END | disposition home or self-care (01) ==
LOC: LAB 18:50 → LAB SHORT 18:50
PROVIDERS: Physician Assistant Surgical
DX: R07.9 Chest pain, unspecified (principal)
CPT/HCPCS: 80053; 83880; 84484; 85025; 85379

== ENCOUNTER → 2024-06-17 | Outpatient (CLI) | payer MEDICARE, BC ==
[~2024-06-17] MED LIST changes: +AMOCLA875 PO; +AZELASTINE137 MCG/06; +BREO ELLIPTA 11 EAC1 INH; +FLUT.05NI; +FURO40 PO; +IPRAT-ALBUT 0.5-3 ML INH; +LACT PO; +LOSARTAN POTAS100 M1 PO; +LOSARTAN-HCTZ1 EAC5 PO; +NEOPOLDEXS BOTHEYES; +OSEL75CA PO; +POTA10T PO; +PRED20 PO; +ROBITUSSIN DM PO; +SODCHL1 PO; +SPIRIVA RESPIMAT4 G3 INH
[2024-06-17 13:23] LABS: Protein, Urine Quantitative 6.1 mg/dL (0.0-11.9)
[2024-06-17 13:27] LABS: Microalbumin, Urine Quant. <5.000 mg/L (0.000-20.000)
== END ==
LOC: LAB SHORT 11:26 → LAB 11:26
PROVIDERS: Internal Medicine Nephrology
DX: N18.30 Chronic kidney disease, stage 3 unspecified (principal); D63.1 Anemia in chronic kidney disease; N25.81 Secondary hyperparathyroidism of renal origin; R76.9 Abnormal immunological finding in serum, unspecified; R94.5 Abnormal results of liver function studies; R94.6 Abnormal results of thyroid function studies; E55.9 Vitamin D deficiency, unspecified
CPT/HCPCS: 81050; 82043; 82570; 84156